=== PATIENT | female | born 1985 | race Caucasian/White ===

== ENCOUNTER 2016-09-23 16:46 | Emergency (ER) | payer MEDICAID ==
[2016-09-23 16:52] VITALS: RESP 16; TEMP 98.2
[2016-09-23 17:34] LABS: COLOR AMBER; LEUKOCYTE ESTERASE,URINE 1+ (NEGATIVE); NITRITE,URINE NEGATIVE (NEGATIVE)
[2016-09-23 17:37] LABS: BACTERIA TRACE /hpf (NONE SEEN); MUCUS 4+ /lpf (NONE-1+)
--- NOTE | 2016-09-23 17:46 | EDPHY ---
H & P Time Seen by Provider: 09/23/16 17:11 HPI/ROS: HPI Right flank pain. Medical clearance for halfway. Patient is here with MILI with complaint of burning with urination right-sided flank pain ongoing for 3-4 days. No fever. No vaginal bleeding. No other complaints. ROS: Constitutional: No fever, no chills. No weakness. Eyes: No discharge. No changes in vision. ENT: No sore throat. No nasal congestion or rhinorrhea. Respiratory: No cough. No shortness of breath. Cardiac: No chest pain, no palpitations. Gastrointestinal: No abdominal pain, no vomiting, no diarrhea. Genitourinary: No hematuria. No dysuria or increased frequency with urination. Musculoskeletal: No back pain. No neck pain. No myalgias or arthralgias. Skin: No rashes. Neurological: No headache. No focal weakness or altered sensation. Past medical history: Graves disease, chronic back pain, anxiety. Social history: Smoker. As above. Denies alcohol. Physical Exam: General Appearance: Alert, no distress. She looks well. This patient is responding to questions appropriately and in full sentences. This patient appears well-hydrated and well-nourished. Head: Normocephalic atraumatic. Eyes: Pupils equal and round no pallor or injection. No lid edema, erythema or injection. Respiratory: There are no retractions, lungs are clear to auscultation with good air movement bilaterally. Cardiovascular: Regular rate and rhythm. No murmur. Gastrointestinal: Abdomen is soft and nontender, no masses, bowel sounds normal. No focal tenderness at McBurney's point. No Jones sign. Neurological: Motor sensory function is grossly intact. Cranial nerves are normal. Gait is normal. Skin: Warm and dry, no rashes. Musculoskeletal: Mild right-sided CVA tenderness on palpation. No left-sided CVA tenderness on palpation. No midline cervical, thoracic, lumbar, sacral tenderness on palpation. Extremities are symmetrical. All joints range without pain or impingement. Psychiatric: No agitation. No depression. Database: EKG: Imaging: Procedures: Emergency department course: Urine specimen obtained. Vital signs reviewed and are normal. Patient's medication allergies reviewed. 5:50 p.m., patient started on Keflex 500 mg in the emergency department for treatment of urinary tract infection, early pyelonephritis. I will prescribe her this medication to be taken 4 times daily for the next 8 days. Follow-up and return to emergency department precautions were discussed with her and the escorting chief growth officer. All of her questions were answered. She was medically cleared for discharge back to halfway with her prescription. Differential Diagnosis: The differential diagnosis on this patient includes but is not limited to urinary tract infection, early pyelonephritis. Nephrolithiasis, traumatic injury unlikely. This represents a partial list of diagnoses considered. These considerations are based on history, physical exam, past history, reassessment and diagnostic testing. Smoking Status: Current every day smoker Constitutional: Initial Vital Signs Temperature (C) 36.8 C 09/23/16 16:50 Heart Rate 85 09/23/16 16:50 Respiratory Rate 16 09/23/16 16:50 Blood Pressure 119/75 09/23/16 16:50 O2 Sat (%) 96 09/23/16 16:50 O2 Delivery Mode Room Air Allergies/Adverse Reactions: strawberries Allergy (Uncoded 09/23/16 16:49) Home Medications: Medication Instructions Recorded ALPRAZolam [Xanax 0.5 MG (*)] 0.5 mg PO 09/23/16 Budesonide/Formoterol 160/4.5 6 gm IH 09/23/16 [Symbicort 160-4.5 Mcg Inh (*)] Carisoprodol [Soma (*)] 350 mg PO 09/23/16 Cephalexin [Keflex (*)] 500 mg PO Q6 8 Days 09/23/16 Citalopram Hydrobromide [Celexa] 40 mg PO 09/23/16 LORazepam [Ativan (*)] 0.5 mg PO 09/23/16 Medical Decision Making - Data Points Laboratory Results: 09/23/16 16:58 Urine Color ROEL Urine Appearance MODERATELY TURBID Urine pH 5.0 (5.0-7.5) Ur Specific [place] 1.033 H (1.002-1.030) Urine Protein 1+ H (NEGATIVE) Urine Ketones TRACE H (NEGATIVE) Urine Blood NEGATIVE (NEGATIVE) Urine Nitrate NEGATIVE (NEGATIVE) Urine Bilirubin NEGATIVE (NEGATIVE) Urine Urobilinogen 2.0 EU H EU (0.2-1.0) Ur Leukocyte Esterase 1+ H (NEGATIVE) Urine RBC NONE SEEN /hpf /hpf (0-3) Urine WBC 15-25 /hpf H /hpf (0-3) Ur Epithelial Cells 2+ /lpf H /lpf (NONE-1+) Calcium Oxalate Crystal PRESENT /hpf /hpf (NONE-1+) Urine Bacteria TRACE /hpf H /hpf (NONE SEEN) Hyaline Casts 1-5 /lpf /lpf (0-1) Urine Mucus 4+ /lpf H /lpf (NONE-1+) Urine Glucose NEGATIVE (NEGATIVE) Departure - Departure Disposition: Home, Routine, Self-Care Clinical Impression: Urinary tract infection Condition: Good Instructions: Urinary Tract Infection in Women (ED) Additional Instructions: Read and follow provided instructions. Follow-up with your primary care physician in 2-3 days for re-evaluation. Take medication as prescribed through entire course of treatment. Ibuprofen dosin mg every 6 hours with meals for the next 3 days only. Return to the emergency department for worsening symptoms, worsening back pain, fever, vomiting or other serious concerns. Referrals: NONE *PRIMARY CARE P,. [Primary Care Provider] - As per Instructions Prescriptions: Cephalexin [Keflex (*)] 500 mg PO Q6 8 Days
[2016-09-23] MEDS ORDERED: CEPHALEXIN 500 MG CAP PO ONE (17:47)
[2016-09-23] MEDS ORDERED: IBUPROFEN 600 MG TAB PO ONE (17:55)
[2016-09-23 18:12] VITALS: BP 112/76; PULSE 91; O2SAT 100
[2016-09-24 07:19] LABS: RBC,URINE 25-50 /hpf (0-3)
== END 2016-09-23 18:10 | disposition home or self-care (01) ==
DX: N39.0 Urinary tract infection, site not specified (principal); F17.200 Nicotine dependence, unspecified, uncomplicated